=== PATIENT | male | born 1985 | race Caucasian/White ===

== ENCOUNTER 2020-05-07 12:54 | Emergency (ER) | payer BC, SELFPAY ==
[2020-05-07 13:09] VITALS: BP 134/66; PULSE 131; RESP 18; TEMP 35.9; O2SAT 100
[2020-05-07 13:23] LABS: Hematocrit 51.6 % (42.0-52.0); Hemoglobin 17.8 g/dL (14.0-18.0); Mean Corpuscular HGB Conc 34.5 g/dl (32-36); Mean Corpuscular Hemoglobin 28.4 pg (26-34); Mean Corpuscular Volume 82.4 fl (80-100); Mean Platelet Volume 9.7 fl (7.4-10.4); Platelet Count Result 260 k/mm3 (150-375); Red Blood Count 6.26 M/mm3 (4.6-6.20); Red Cell Distribution Width 12.3 % (11.5-14.5); White Blood Count 11.8 K/mm3 (4.5-10.0)
[2020-05-07 13:25] LABS: Add Urine Microscopic? YES; Appearance Urine Clear (Clear); Bilirubin Urine Negative (Negative); Blood Urine Negative (Negative); Color Urine Yellow (Yellow); Glucose Urine UA Negative (Negative); Ketones Urine Trace mg/dL (Negative); Leukocyte Esterase Ur Negative LEU/UL (Negative); Mucus Urine Rare /lpf; Nitrate Urine Negative (Negative); Protein Urine 1+ mg/dL (Negative); RBC Urine 0-2 /hpf (0-2); Urobilinogen Urine Negative mg/dL (<2.0); WBC Urine 0-3 /hpf
[2020-05-07 13:39] LABS: Alanine Aminotransferase 32 U/L (4-50); Albumin Level 4.7 g/dL (3.5-5.1); Alkaline Phosphatase 71 U/L (38-126); Anion Gap 11 mmol/L (8-16); Aspartate Amino Transferase 25 U/L (17-59); Bilirubin,Total 0.9 mg/dL (0.2-1.3); Blood Urea Nitrogen 16 mg/dL (9-20); Calcium 9.4 mg/dL (8.4-10.2); Carbon Dioxide 19 mmol/L (22-30); Chloride 104 mmol/L (98-107); Estimated CRCL calculation 128 ml/min; Estimated Glomerular Filt Rate > 60; Glucose 142 mg/dL (75-110); Lipase 48 U/L (23-300); Potassium 3.8 mmol/L (3.4-5.0); Sodium 134 mmol/L (137-145)
[2020-05-07 13:44] LABS: Band Neutrophils Percent 2 % (0-6); Lymphocytes Absolute Manual 0.94 K/mm3 (1.1-4.5); Monocytes Absolute Manual 1.06 K/mm3 (0.1-0.90); Monocytes Percent Manual 9 % (3-9); Neutrophils Absolute Manual 9.79 K/mm3 (1.3-6.7); Neutrophils Percent Manual 81 % (46-73); Platelet Estimate Adequate (Adequate); Total Cells Counted 100
[2020-05-07 13:45] LABS: Macrocytosis 1+ (NORMAL); Ovalocytes 1+ (NORMAL)
--- NOTE | 2020-05-07 15:40 | ED.ABDPAIN ---
HPI - Abdominal Pain General Chief Complaint: Abdominal Pain Stated Complaint: Vomiting, Diarrhea Time Seen by Provider: 05/07/20 14:53 Source: patient Mode of arrival: ambulatory Limitations: no limitations History of Present Illness HPI narrative: A 34-year-old male came into the emergency department today with complaints of abdominal pain, nausea and vomiting. Patient also notes that he has had a couple of episodes of diarrhea. Patient states that he thinks he may have suffered from food poisoning. He noted yesterday that around lunchtime he ate at a local [employer] shop. Patient states his symptoms started around 7 PM last night. Started with nausea and vomiting and then continued on daily abdominal cramping and diarrhea. He states that his nausea and vomiting has somewhat subsided but he is still having a lot of abdominal pain, cramping and diarrhea. Patient denies any blood in his emesis or stools. Related Data Allergies Allergy/AdvReac Type Severity Reaction Status Date / Time No Known Allergies Allergy Verified 05/07/20 13:11 Review of Systems Review of Systems: Narrative: CONSTITUTIONAL: Denies fever, chills, or sweats. EYES: Denies visual changes, redness, or discharge. ENT: Denies rhinorrhea, congestion, sore throat, or otalgia. CARDIOVASCULAR: Denies chest pain, palpitations, or edema. RESPIRATORY: Denies cough or dyspnea. GASTROINTESTINAL: Endorses abdominal pain, nausea, vomiting, and diarrhea. GENITOURINARY: Denies dysuria or hematuria. SKIN: Denies rash or itching. MUSCULOSKELETAL: Denies back pain, joint pain, or myalgia. NEUROLOGIC: Denies headache, numbness, dizziness, or weakness. PSYCHIATRIC: Denies anxiety or depression. Exam Narrative: Exam Narrative: GENERAL: Well-appearing, well-nourished, and in no acute distress. HEAD: Normocephalic, atraumatic. EYES: PERRLA and EOMI. ENT: Nares clear, no rhinorrhea or epistaxis. Mucous membranes moist. Oropharynx without tonsillar hypertrophy exudate or other lesions. Bilateral TMs pearly [place] nonbulging NECK: Supple. No adenopathy or masses. No carotid bruits or JVD CHEST: Clear to auscultation. No respiratory distress. No wheezes rales or rhonchi HEART: Regular rate and rhythm. No murmur heard. Normal peripheral pulses. ABDOMEN: Soft, mild generalized tenderness, nondistended, normal active bowel sounds. EXTREMITIES: Normal range of motion. No edema. SKIN: Warm, dry, no rash. NEURO: No focal deficits. Alert and oriented x3. PSYCH: Normal mood and affect. Course Reevaluation(s) Reevaluation #1: Patient was reevaluated. After symptomatic medications he is feeling much better. Patient is ready to go home. Time: 16:02 Vital Signs Vital signs: Vital Signs Temperature 35.9 C L 05/07/20 13:09 Pulse Rate 131 H 05/07/20 13:09 Respiratory Rate 18 05/07/20 13:09 Blood Pressure 134/66 05/07/20 13:09 Pulse Oximetry 100 05/07/20 13:09 Temperature 35.9 C L 05/07/20 13:09 Pulse Rate 131 H 05/07/20 13:09 Respiratory Rate 18 05/07/20 13:09 Blood Pressure 134/66 05/07/20 13:09 Pulse Oximetry 100 05/07/20 13:09 MDM - Abdominal Pain MDM Narrative Medical decision making narrative: In brief this is a 34-year-old male who came into the emergency department with complaints of gastroenteritis type symptoms. He did admit to eating something that he thought was maybe bed. Patient was given symptomatic medications and feeling much better. Review of his lab work does not show any concerning findings. I feel the patient may be discharged home to follow-up with primary care physician. Medical Records Attestation: I reviewed the patient's medical records. Lab Data Attestation: I reviewed the patient's lab results. Result diagrams: 05/07/20 13:13 05/07/20 13:13 Labs: Lab Results 05/07/20 05/07/20 05/07/20 Range/Units 13:13 13:13 13:13 WBC 11.8 H (4.5-10.0) K/mm3 RBC 6.26 H (4.6-6.20) M/mm3 Hgb 17
[2020-05-07] MEDS: ONDANSETRON INJ 4 MG/2 ML VIAL IV PUSH (15:50)
[2020-05-07] MEDS: DICYCLOMINE HCL INJ 20 MG/2 ML VIAL IM (15:50)
[2020-05-07] MEDS: KETOROLAC 15 MG/ML VIAL (*BKC) IV PUSH (15:51)
[2020-05-07 16:59] VITALS: BP 169/84; PULSE 110; RESP 16
== END 2020-05-07 17:00 | disposition home or self-care (01) ==
PROVIDERS: Emergency Medicine; Emergency Provider Emergency Medicine
DX: T62.91XA Toxic effect of unspecified noxious substance eaten as food, accidental (unintentional), initial encounter (principal)
CPT/HCPCS: 36415; 80053; 81001; 83690; 85025; 96372; 96374; 96375; 99284; J0500; J1885; J2405